=== PATIENT | male | born 1980 | race Caucasian/White ===

== ENCOUNTER 2020-06-29 05:24 | Emergency (ER) | payer SELFPAY ==
--- NOTE | 2020-06-29 06:06 | EDM.PDOC ---
ED HPI GENERAL MEDICAL PROBLEM - General Chief Complaint: Abdominal Pain Stated Complaint: CONSTIPATED/ABDOMINAL PAIN Time Seen by Provider: 06/29/20 05:39 Source of Information: Reports: Patient History Limitations: Reports: No Limitations - History of Present Illness INITIAL COMMENTS - FREE TEXT/NARRATIVE: Mr. Sofia is a very pleasant 40-year-old gentleman with no chronic medical problems, on no regular medicines, who now presents the ED stating that he has had almost 2 weeks of decreased urine output with unintentional dribbling, followed by 1 week of constipation and burning lower left quadrant abdominal pain. He states that he saw his PCP this past 06/24/2020. He states that he talked about his urine symptoms, but did not mention constipation or abdominal pain, since they had only been going on for a couple of days at that time. He states that blood work and urinalysis were performed, and that they all returned normal, with the exception of an elevated total bilirubin of 1.2. The patient states that he took one dose of MiraLAX this past night, 06/27/2020, then a second dose last night, 06/28/2020, with no significant bowel movement. Here in the ED, the patient is found to be hemodynamically stable, afebrile, saturating 98% on room air. Urinary symptoms, constipation, and abdominal pain, the patient denies having a recent fever, chills, sore throat, ear pain, nasal or sinus congestion, cough, dyspnea, chest pain, palpitations, nausea, vomiting, diarrhea, recent weight gain or weight loss, recent bloody bowel movements or black bowel movements, recent joint aches, headaches, or rashes. The patient's PCP is Kely Bell NP. Left Abdomen Pain Score (Numeric/FACES): 3 - Related Data Allergies Allergy/AdvReac Type Severity Reaction Status Date / Time No Known Allergies Allergy Verified 06/29/20 05:39 Home Meds: Home Meds . [No Known Home Meds] 06/29/20 [History] Past Medical History - Past Surgical History HEENT Surgical History: Reports: Adenoidectomy, Tonsillectomy Musculoskeletal Surgical History: Reports: Arthroscopic Knee (left) Social & Family History - Tobacco Use Smoking Status *Q: Never Smoker Second Hand Smoke Exposure: No - Caffeine Use Caffeine Use: Reports: Coffee, Energy Drinks, Tea - Alcohol Use Alcohol Use History: Yes Alcohol Use Frequency: Socially - Recreational Drug Use Recreational Drug Use: No - Living Situation & Occupation Living situation: Reports: Single, Alone Occupation: Unemployed (Laid off electronics lead) ED ROS GENERAL - Review of Systems Review Of Systems: Comprehensive ROS is negative, except as noted in HPI. ED EXAM, GI/ABD - Physical Exam Exam: See Below Exam Limited By: No Limitations General Appearance: Alert, WD/WN, No Apparent Distress Eyes: Bilateral: Normal Appearance, EOMI Ears: Normal External Exam, Hearing Grossly Normal Nose: Normal Inspection Throat/Mouth: Normal Inspection, Normal Lips, Normal Voice, No Airway Compromise Head: Atraumatic, Normocephalic Neck: Normal Inspection, Full Range of Motion Respiratory/Chest: No Respiratory Distress, Lungs Clear, Normal Breath Sounds, No Accessory Muscle Use Cardiovascular: Normal Peripheral Pulses, Regular Rate, Rhythm, No Edema, No Gallop, No JVD, No Murmur, No Rub GI/Abdominal Exam: Normal Bowel Sounds, Soft, Non-Tender (including the LLQ), No Organomegaly, No Distention, No Abnormal Bruit, No Mass (Male) Exam: Deferred Rectal (Males) Exam: Normal Rectal Tone, Other (Modest amount of fairly hard stool in the rectum). No: Fecal Impaction, Tenderness Back Exam: Normal Inspection, Full Range of Motion. No: CVA Tenderness (L), CVA Tenderness (R) Extremities: Normal Inspection, Normal Range of Motion, No Pedal Edema, Normal Capillary Refill Neurological: Alert, Oriented, Normal Cognition, No Motor/Sensory Deficits Psychiatric: Normal Affect Skin Exam: Warm, Dry, Intact, Normal Color, No Rash Course - Vital Signs Last Recorded V/S: Last Vital Signs Temp 36.3 C 06/29/20 05:35 Pulse 87 06/29/20 05:35 Resp 18 06/29/20 05:35 BP 130/96 H 06/29/20 05:35 Pulse Ox 98 06/29/20 05:35 - Orders/Labs/Meds Orders: Active Orders 24 hr Category Date Time Status Bladder Scan [RC] ASDIRECTED Care 06/29/20 06:02 Active Abdomen 1V Flat [CR] Stat Exams 06/29/20 06:00 Taken Labs: Laboratory Tests 06/29/20 Range/Units 06:15 Urine Color Yellow (Yellow) Urine Appearance Clear (Clear) Urine pH 6.0 (5.0-8.0) Ur Specific [place] 1.020 (1.005-1.030) Urine Protein Negative (Negative) Urine Glucose (UA) Negative (Negative) Urine Ketones Negative (Negative) Urine Occult Blood Negative (Negative) Urine Nitrite Negative (Negative) Urine Bilirubin Negative (Negative) Urine Urobilinogen 0.2 (0.2-1.0) Ur Leukocyte Esterase Negative (Negative) Urine RBC 0-5 (0-5) /hpf Urine WBC 0-5 (0-5) /hpf Ur Squamous Epith Cells 0-5 (0-5) /hpf Urine Bacteria Few (FEW) /hpf Urine Mucus Rare (FEW) /hpf - Re-Assessments/Exams Free Text/Narrative Re-Assessment/Exam: 06/29/20 06:01 As above, the patient has had about 2 weeks of decreased urine output and unintentional dribbling, followed by 1 week of constipation and burning lower left quadrant abdominal pain. On examination, he is able to indicate where his lower left quadrant abdominal pain is, but he is not tender there or anywhere else. On rectal exam, he has a modest amount of fairly firm stool in his rectum, but no fecal impaction. Because he does not have abdominal tenderness, I do not see an indication for CT scan of his abdomen and pelvis and I do not know that blood work would be of any use today, particularly since he apparently had normal blood work performed on Wednesday. For today's purposes, I have ordered a urinalysis with post-void bladder scan, and an abdominal flatplate x- ray to evaluate for constipation. 06/29/20 06:19 Notified by Delia LOPES that the patient's post-void residual urine volume was 58 mL. 06/29/20 06:25 Flat plate abdominal radiograph appears to demonstrate an increased amount of stool in the left upper quadrant and a small amount of stool in the rectum, blood minimal, if any, stool in the descending colon, and no appreciable amount in the transverse or right upper quadrant. Nonspecific bowel gas pattern. Formal read per the Radiologist pending. 06/29/20 06:55 The patient's urinalysis is completely normal. 06/29/20 06:58 Test results discussed with the patient. As above, the patient does not have a significant amount of constipation, his urinalysis is completely normal, and he does not have significant urinary retention. Going forward, I am recommending that he drink half a bottle of [id number]-parfwfl magnesium citrate, which he can repeat the other half a few hours later, and use an [id number]-cosurpi enema, which should help clean him up completely. If he continues to have the sensation of constipation after he is cleaned out, I would like him to follow-up with his PCP, who can arrange for him to have a colonoscopy. Departure - Departure Time of Disposition: 07:00 Disposition: Home, Self-Care 01 Condition: Good Clinical Impression: Abdominal pain of unknown etiology, Dribbling following urination - Discharge Information *PRESCRIPTION DRUG MONITORING PROGRAM REVIEWED*: Not Applicable *COPY OF PRESCRIPTION DRUG MONITORING REPORT IN PATIENT CHARLES: Not Applicable Referrals: Kely Bell NP [Primary Care Provider] - Forms: ED Department Discharge Additional Instructions: You were seen in the emergency room for 2 weeks of decreased urine output with dribbling afterwards, and 1 week of constipation with lower left abdominal burning sensation. Work-up in the ER included a urinalysis with post-void bladder scan, and a flat plate abdominal x-ray. Your entire work-up was unremarkable. Your urinalysis was completely normal, with no suggestion of a urinary tract infection, and your post-void residual was only 58 mL. Your abdominal x-ray showed only a modest amount of stool, mostly up in the upper left colon, but no significant constipation. Going forward, we recommend that you clean out your colon with half a bottle of vajd-wfm-fqtxclx magnesium citrate. You may repeat the other half a bottle a few hours later, if necessary. At the same time, we would recommend that you purchase and use an [id number]-iep-zlhpotz saline or mineral oil enema. If you continue to feel constipated after cleaning out your colon, we recommend that you follow-up with your PCP, Kely Bell NP, to arrange for a colonoscopy. If any other problems, please do not hesitate to return to the ER. Sepsis Event Note (ED) - Evaluation Sepsis Screening Result: No Definite Risk - Focused Exam Vital Signs: Vital Signs Temp Pulse Resp BP Pulse Ox 06/29/20 05:35 36.3 C 87 18 130/96 H 98 - My Orders Last 24 Hours: My Active Orders 06/29/20 06:00 Abdomen 1V Flat [CR] Stat 06/29/20 06:02 Bladder Scan [RC] ASDIRECTED - Assessment/Plan Last 24 Hours: My Active Orders 06/29/20 06:00 Abdomen 1V Flat [CR] Stat 06/29/20 06:02 Bladder Scan [RC] ASDIRECTED
--- NOTE | 2020-06-29 10:24 | CR ---
Abdomen: Supine view of the abdomen was obtained. Bowel gas pattern is normal. Small calcification within the left pelvis. Bony structures are unremarkable. Impression: 1. Nothing acute is seen on supine abdominal x-ray. Diagnostic code #1 Agree with preliminary report issued by [facility] ([facility] preliminary report dictated on 06/29/20, 7:23 AM Central Daylight Time) Study was dictated in [facility]
== END 2020-06-29 07:10 | disposition home or self-care (01) ==
LOC: JD.ED 05:24
DX: N39.43 Post-void dribbling (principal); K59.00 Constipation, unspecified
CPT/HCPCS: 51798; 74018; 74018-26; 81001; 99282; 99284-25